=== PATIENT | female | born 1965 | race Caucasian/White ===

== ENCOUNTER 2017-06-24 23:44 | Inpatient (IN) | payer BC ==
[~2017-06-24] VITALS: Ht 165.1 cm; Wt 61.7 kg
[2017-06-24] MEDS ORDERED: VERA80 PO (23:59)
[2017-06-24] MEDS ORDERED: DULO60CA44 PO (23:59)
[2017-06-24] MEDS ORDERED: VALA500T38 PO (23:59)
[2017-06-24] MEDS ORDERED: TRAZ-144 PO (23:59)
[2017-06-24] MEDS ORDERED: ALPR0.5T8 PO (23:59)
[2017-06-25 00:03] LABS: BASOPHILS # (AUTO) 0.04 K/uL (0.00-0.20); BASOPHILS % (AUTO) 0.4 % (0.0-2.0); EOSINOPHILS % (AUTO) 2.15 % (1.0-6.0); HEMATOCRIT 41.4 % (36-46); HEMOGLOBIN 13.8 g/dL (12.0-16.0); LYMPHOCYTES # (AUTO) 2.9 K/uL (1.0-4.8); LYMPHOCYTES % (AUTO) 30.8 % (22.0-44.0); MEAN CORPUSCULAR HEMOGLOBIN 31.9 pg (26.0-34.0); MEAN CORPUSCULAR HGB CONC 33.3 G/dL (31.0-37.0); MEAN CORPUSCULAR VOLUME 96 fL (80-100); MONOCYTES # (AUTO) 0.8 K/uL (0.1-1.0); MONOCYTES % (AUTO) 8.2 % (2.0-9.0); NEUTROPHILS # (AUTO) 5.4 K/uL (1.8-7.7); NEUTROPHILS % (AUTO) 58.5 % (40.0-70.0); PLATELET COUNT (AUTO) 190 K/uL (150-450); RED BLOOD CELL COUNT(AUTO) 4.32 MIL/uL (4.00-5.20); RED CELL DISTRIBUTION WIDTH 13.7 % (11.5-14.5); WHITE BLOOD COUNT (AUTO) 9.2 K/uL (4.5-11.0)
[2017-06-25 00:16] LABS: ANION GAP 9 mmol/L (8-16); CALCIUM, TOTAL 8.8 mg/dL (8.8-10.5); CARBON DIOXIDE 25 mmol/L (22-29); CHLORIDE 105 mmol/L (98-107); CREATININE 0.71 mg/dL (0.60-1.30); GLOMERULAR FILTR. RATE CALC > 60 mL/min (>60); POTASSIUM 3.8 mmol/L (3.5-5.1); SODIUM SERUM 139 mmol/L (136-145); UREA NITROGEN, BLOOD 14 mg/dL (7-18)
[2017-06-25 00:22] LABS: ALANINE AMINOTRANSFERASE 21 U/L (12-78); ALBUMIN 3.6 g/dL (3.4-5.0); ASPARTATE AMINOTRANSFERASE 13 U/L (15-37); BILIRUBIN,TOTAL 0.3 mg/dL (0.1-1.0); TOTAL PROTEIN, SERUM 6.7 g/dL (6.4-8.2)
[2017-06-25] MEDS ORDERED: QUEtiapine FUMARATE 100 MG TABLET PO PRN (01:15)
[2017-06-25] MEDS ORDERED: ZOLPIDEM TARTRATE 10 MG TABLET PO PRN (01:15)
[2017-06-25] MEDS ORDERED: LORazepam 2 MG TABLET PO PRN (01:15)
[2017-06-25] MEDS ORDERED: TraZODone HCL 50 MG TABLET PO ONE (03:45)
[2017-06-25] MEDS ORDERED: ALPRAZolam 0.25 MG TABLET PO ONE (03:45)
[2017-06-25 04:15] VITALS: BP 149/99
[2017-06-25 04:22] LABS: ADD UA MICROSCOPIC YES; APPEARANCE,URINE CLEAR (CLEAR); GLUCOSE, URINE (UA) NEGATIVE (NEGATIVE); KETONES,URINE NEGATIVE (NEGATIVE); LEUKOCYTE ESTERASE ,URINE MODERATE (NEGATIVE); OCCULT BLOOD,URINE NEGATIVE (NEGATIVE); PROTEIN,URINE NEGATIVE (NEGATIVE)
[2017-06-25 04:36] LABS: RBC,URINE 0-2 /HPF (0-2); SQUAMOUS EPITHELIAL CELL,UR Few /LPF (None Seen)
[2017-06-25] MEDS ORDERED: MAGNESIUM HYDROXIDE SUSPENSION 30 ML UDCUP PO PRN (08:00)
[2017-06-25] MEDS ORDERED: PROMETHAZINE HCL 25 MG TABLET PO PRN (08:00)
[2017-06-25] MEDS ORDERED: TUBERCULIN, PURIFIED PROTEIN DERIVATIVE 5 TU/0.1 ML SYG ID ONE (08:00)
[2017-06-25] MEDS ORDERED: MAG HYDROX/AL HYDROX/SIMETH ES 30 ML SUSPENSION UDCUP PO PRN (08:00)
[2017-06-25] MEDS ORDERED: HydrOXYzine PAMOATE 50 MG CAPSULE PO PRN (08:00)
[2017-06-25] MEDS ORDERED: GuaiFENesin/D-METHORPHAN [SUGAR-FREE] 200-20MG/10 ML SYRUP UDCUP PO PRN (08:00)
[2017-06-25] MEDS ORDERED: ACETAMINOPHEN 325 MG TABLET PO PRN (08:00)
[2017-06-25] MEDS ORDERED: LOPERAMIDE HCL 2 MG CAPSULE PO PRN (08:00)
[2017-06-25] MEDS ORDERED: CloNIDine HCL 0.1 MG TABLET PO PRN (08:15)
[2017-06-25] MEDS ORDERED: BENZOCAINE/MENTHOL LOZENGE MM PRN (08:15)
[2017-06-25] MEDS ORDERED: BACITRACIN 28.4 GM OINTMENT TP PRN (08:15)
[2017-06-25] MEDS ORDERED: ALBUTEROL SULFATE HFA 90 MCG/PUFF 8 GM INHALER IH PRN (08:15)
[2017-06-25] MEDS ORDERED: PETROLATUM,WHITE 71 GM JELLY TP PRN (08:15)
[2017-06-25] MEDS ORDERED: ONDANSETRON HCL 4 MG TABLET PO PRN (08:15)
[2017-06-25 08:44] VITALS: BP 102/67
[2017-06-25] MEDS: FOLIC ACID 1 MG TABLET PO SCH (09:22)
[2017-06-25] MEDS: NITROFURANTOIN/NITROFURAN MAC 100 MG CAPSULE [MACROBID] PO SCH ×2 (09:22→16:04)
[2017-06-25] MEDS: DULoxetine HCL 60 MG CAPSULE PO SCH (09:22)
[2017-06-25] MEDS: VERAPAMIL HCL 80 MG TABLET PO SCH (09:22)
[2017-06-25] MEDS: THIAMINE HCL 100 MG TABLET PO SCH ×2 (09:23→16:04)
[2017-06-25] MEDS: MULTIVITAMINS WITH MINERALS, THERAPEUTIC TABLET PO SCH (09:25)
[2017-06-25] MEDS ORDERED: ELETRIPTAN HYDROBROMIDE 40 MG TABLET PO PRN ×2 (14:15→14:30)
[2017-06-25] MEDS ORDERED: TraMADol HCL 50 MG TABLET PO PRN (14:15)
[2017-06-25] MEDS ORDERED: VERA240SR PO (14:21)
[2017-06-25 16:16] VITALS: BP 113/79
[2017-06-25] MEDS: PRAZOSIN HCL 1 MG CAPSULE PO SCH (20:22)
[2017-06-25] MEDS: TraZODone HCL 100 MG TABLET PO SCH (20:22)
[2017-06-25] MEDS ORDERED: SUMAtriptan SUCCINATE 25 MG TABLET PO ONE (21:15)
[2017-06-25] MEDS: ALPRAZolam 1 MG TABLET PO PRN (21:55)
[2017-06-25 21:59] VITALS: BP 101/64
[2017-06-26] MEDS ORDERED: TraMADol HCL 50 MG TABLET PO PRN ×2 (02:15→14:15)
[2017-06-26 07:07] LABS: CHOL/HDL RATIO 2.4 (3.9-5.7)
[2017-06-26 08:20] VITALS: BP 103/70
[2017-06-26] MEDS: FOLIC ACID 1 MG TABLET PO SCH (08:45)
[2017-06-26] MEDS: MULTIVITAMINS WITH MINERALS, THERAPEUTIC TABLET PO SCH (08:45)
[2017-06-26] MEDS: NITROFURANTOIN/NITROFURAN MAC 100 MG CAPSULE [MACROBID] PO SCH ×2 (08:45→16:20)
[2017-06-26] MEDS: THIAMINE HCL 100 MG TABLET PO SCH ×2 (08:45→16:20)
[2017-06-26] MEDS: VERAPAMIL HCL 80 MG TABLET PO SCH (08:45)
[2017-06-26] MEDS: DULoxetine HCL 60 MG CAPSULE PO SCH (08:46)
[2017-06-26 11:58] VITALS: BP 115/73
[2017-06-26] MEDS: ALPRAZolam 1 MG TABLET PO PRN ×3 (11:58→21:37)
[2017-06-26] MEDS ORDERED: TraMADol HCL 50 MG TABLET PO ONE (12:45)
[2017-06-26] MEDS ORDERED: ELETRIPTAN HYDROBROMIDE 40 MG TABLET PO ONE (12:45)
[2017-06-26] MEDS ORDERED: TRAZ-147 PO (12:54)
[2017-06-26] MEDS ORDERED: DULO20CA30 PO (12:54)
[2017-06-26] MEDS ORDERED: PRAZ1 PO (12:54)
[2017-06-26 16:25] VITALS: BP 100/66
[2017-06-26 17:25] VITALS: BP 102/78
[2017-06-26] MEDS ORDERED: ELETRIPTAN HYDROBROMIDE 40 MG TABLET PO PRN (17:45)
[2017-06-26] MEDS: TraZODone HCL 100 MG TABLET PO SCH (21:02)
[2017-06-26] MEDS: PRAZOSIN HCL 1 MG CAPSULE PO SCH (21:35)
[2017-06-27] MEDS ORDERED: PRAZ1 PO (08:08)
[2017-06-27] MEDS ORDERED: MACR100 PO (08:09)
[2017-06-27 08:46] VITALS: BP 95/66
[2017-06-27] MEDS ORDERED: DULoxetine HCL 20 MG CAPSULE PO SCH (09:00)
[2017-06-27] MEDS: FOLIC ACID 1 MG TABLET PO SCH (09:10)
[2017-06-27] MEDS: MULTIVITAMINS WITH MINERALS, THERAPEUTIC TABLET PO SCH (09:10)
[2017-06-27] MEDS: THIAMINE HCL 100 MG TABLET PO SCH (09:10)
[2017-06-27] MEDS: NITROFURANTOIN/NITROFURAN MAC 100 MG CAPSULE [MACROBID] PO SCH (09:10)
[2017-06-27] MEDS: VERAPAMIL HCL 80 MG TABLET PO SCH (09:11)
== END 2017-06-27 11:42 | disposition home or self-care (01) | DRG 885 ==
LOC: EMS 23:45 → 3EX 06-25 03:41 → 3EI 06-25 03:41 → UNDOADMIN 06-25 03:41
PROVIDERS: ADMIT Psychiatry & Neurology Psychiatry; ATTEND Psychiatry & Neurology Psychiatry
DX: F33.2 Major depressive disorder, recurrent severe without psychotic features (principal); R45.851 Suicidal ideations; Z91.19 Patient's noncompliance with other medical treatment and regimen; N39.0 Urinary tract infection, site not specified; M54.5 Low back pain; J45.909 Unspecified asthma, uncomplicated; F43.10 Post-traumatic stress disorder, unspecified; F41.9 Anxiety disorder, unspecified; F10.129 Alcohol abuse with intoxication, unspecified; G43.909 Migraine, unspecified, not intractable, without status migrainosus; G47.00 Insomnia, unspecified; I10 Essential (primary) hypertension; Z63.9 Problem related to primary support group, unspecified; Z65.3 Problems related to other legal circumstances; Z71.41 Alcohol abuse counseling and surveillance of alcoholic; Z90.710 Acquired absence of both cervix and uterus; Z56.0 Unemployment, unspecified; Z88.8 Allergy status to other drugs, medicaments and biological substances
CPT/HCPCS: 87086; 99285; G0480

== ENCOUNTER 2022-09-18 13:05 | Inpatient (IN) | payer BC, MEDICAID ==
[~2022-09-18] VITALS: Ht 165.1 cm; Wt 71.4 kg
[~2022-09-18 13:05] MED LIST: DULO-113 PO; DULO20CA71 PO; NITR-75 PO; PRAZ1 PO; TRAZ-252 PO; TRAZ-257 PO; VERA240T96 PO
[2022-09-18 14:59] LABS: BASOPHILS % (AUTO) 0.6 % (0.0-2.0); COVID AG,FIA SOURCE NASOPHARYNGEAL; EOSINOPHILS % (AUTO) 4.8 % (1.0-6.0); HEMATOCRIT 44.5 % (36-46); HEMOGLOBIN 14.2 g/dL (12.0-16.0); LYMPHOCYTES # (AUTO) 1.6 K/uL (1.0-4.8); LYMPHOCYTES % (AUTO) 29.7 % (22.0-44.0); MEAN CORPUSCULAR HEMOGLOBIN 31.4 pg (26.0-34.0); MEAN CORPUSCULAR HGB CONC 31.8 G/dL (31.0-37.0); MEAN CORPUSCULAR VOLUME 99 fL (80-100); MONOCYTES # (AUTO) 0.6 K/uL (0.1-1.0); MONOCYTES % (AUTO) 11.7 % (2.0-9.0); NEUTROPHILS # (AUTO) 2.9 K/uL (1.8-7.7); NEUTROPHILS % (AUTO) 53.2 % (40.0-70.0); PLATELET COUNT (AUTO) 164 K/uL (150-450); RED BLOOD CELL COUNT(AUTO) 4.51 MIL/uL (4.00-5.20); RED CELL DISTRIBUTION WIDTH 13.8 % (11.5-14.5)
[2022-09-18 15:22] LABS: ANION GAP 5 mmol/L (8-16); CALCIUM, TOTAL 8.6 mg/dL (8.8-10.5); CARBON DIOXIDE 33 mmol/L (22-29); CHLORIDE 106 mmol/L (98-107); CREATININE 0.72 mg/dL (0.60-1.30); GLOMERULAR FILTR. RATE CALC > 60 mL/min (>60); GLUCOSE,RANDOM 96 mg/dL (70-110); POTASSIUM 4.4 mmol/L (3.5-5.1); SODIUM SERUM 144 mmol/L (136-145); UREA NITROGEN, BLOOD 15 mg/dL (7-18)
[2022-09-18 15:29] LABS: ALANINE AMINOTRANSFERASE 18 U/L (12-78); ALBUMIN 3.5 g/dL (3.4-5.0); ALKALINE PHOSPHATASE 51 U/L (46-116); ASPARTATE AMINOTRANSFERASE 18 U/L (15-37); BILIRUBIN,TOTAL 0.4 mg/dL (0.1-1.0); TOTAL PROTEIN, SERUM 6.4 g/dL (6.4-8.2)
[2022-09-18 15:31] LABS: SALICYLATE < 2.8 mg/dL (2.8-20.0)
[2022-09-18 15:45] LABS: ACETAMINOPHEN < 2 mcg/mL (10-30)
[2022-09-18] MEDS ORDERED: HALOPERIDOL 5 MG TABLET PO PRN (15:45)
[2022-09-18] MEDS ORDERED: VERA240C3 PO (15:57)
[2022-09-18] MEDS ORDERED: ELET40TA10 PO (15:57)
[2022-09-18] MEDS ORDERED: TRAZ-257 PO (15:57)
[2022-09-18] MEDS ORDERED: DIVA-112 PO (15:57)
[2022-09-18] MEDS ORDERED: [UNRECOGNIZED DRUG - CODE] SQ (15:57)
[2022-09-18] MEDS ORDERED: VALA500T34 PO (15:57)
[2022-09-18 17:44] VITALS: BP 109/73
[2022-09-18] MEDS ORDERED: PNEUMOCOCCAL VACCINE POLYVALENT 0.5 ML VIAL [PPSV23] IM. ONE (18:15)
[2022-09-18] MEDS ORDERED: INFLUENZA VIRUS VACCINE QVS 2022-23 (6MO+)/PF 60 MCG/0.5 ML SYRINGE IM. ONE (18:15)
[2022-09-18 20:25] VITALS: BP 93/60
[2022-09-18] MEDS: LORazepam 2 MG TABLET PO PRN (23:52)
[2022-09-19 08:00] VITALS: BP 97/59
[2022-09-19] MEDS: DULoxetine HCL 60 MG CAPSULE PO SCH ×2 (12:17→17:30)
[2022-09-19] MEDS: DIVALPROEX SODIUM 500 MG DR TABLET PO SCH ×2 (12:18→17:30)
[2022-09-19] MEDS ORDERED: LOPERAMIDE HCL 2 MG CAPSULE PO PRN (14:00)
[2022-09-19] MEDS ORDERED: NICOTINE 14 MG/24 HOUR PATCH TD PRN (14:00)
[2022-09-19] MEDS ORDERED: PETROLATUM,WHITE 28 GM JELLY TP PRN (14:00)
[2022-09-19] MEDS ORDERED: ALBUTEROL SULFATE HFA 90 MCG/PUFF 8 GM INHALER IH PRN (14:00)
[2022-09-19] MEDS ORDERED: ONDANSETRON HCL 4 MG TABLET PO PRN (14:00)
[2022-09-19] MEDS ORDERED: CloNIDine HCL 0.1 MG TABLET PO PRN (14:00)
[2022-09-19] MEDS ORDERED: DOCUSATE SODIUM 100 MG CAPSULE PO PRN (14:00)
[2022-09-19] MEDS ORDERED: MAG HYDROX/AL HYDROX/SIMETH ES 30 ML SUSPENSION UDCUP PO PRN (14:00)
[2022-09-19] MEDS ORDERED: MAGNESIUM HYDROXIDE SUSPENSION 30 ML UDCUP PO PRN (14:00)
[2022-09-19] MEDS ORDERED: GuaiFENesin/D-METHORPHAN [SUGAR-FREE] 200-20MG/10 ML SYRUP UDCUP PO PRN (14:00)
[2022-09-19 17:50] VITALS: BP 100/64
[2022-09-19 18:48] VITALS: BP_SYST 100; BP_SYST 111; BP_DIAS 64; BP_DIAS 72
[2022-09-19] MEDS: ELETRIPTAN HYDROBROMIDE 40 MG TABLET PO PRN (18:48)
[2022-09-19] MEDS: PRAZOSIN HCL 1 MG CAPSULE PO SCH (21:09)
[2022-09-19] MEDS: TraZODone HCL 100 MG TABLET PO PRN (21:10)
[2022-09-19 21:15] LABS: APPEARANCE,URINE CLEAR (CLEAR); BILIRUBIN,URINE NEGATIVE (NEGATIVE); GLUCOSE, URINE (UA) NEGATIVE (NEGATIVE); KETONES,URINE NEGATIVE (NEGATIVE); LEUKOCYTE ESTERASE ,URINE TRACE (NEGATIVE); NITRATE,URINE NEGATIVE (NEGATIVE); OCCULT BLOOD,URINE NEGATIVE (NEGATIVE); PROTEIN,URINE NEGATIVE (NEGATIVE); SPECIFIC GRAVITIY, URINE 1.015 (1.003-1.030); UROBILINOGEN,URINE <=1.0 mg/dL (<=1.0)
[2022-09-19 21:22] LABS: AMPHET/METH SCREEN,URINE NEGATIVE (NEGATIVE); BARBITURATE SCREEN, URINE NEGATIVE (NEGATIVE); BENZODIAZEPINES SCREEN,URINE POSITIVE (NEGATIVE); CANNABINOID SCREEN,URINE NEGATIVE (NEGATIVE); COCAINE SCREEN,URINE NEGATIVE (NEGATIVE); METHADONE SCREEN, URINE NEGATIVE (NEGATIVE); OPIATE SCREEN,URINE NEGATIVE (NEGATIVE); PHENCYCLIDINE SCREEN,URINE NEGATIVE (NEGATIVE)
[2022-09-19 21:27] LABS: BACTERIA,URINE Rare /HPF (None Seen); RBC,URINE 0-2 /HPF (0-2); SQUAMOUS EPITHELIAL CELL,UR Few /LPF (None Seen)
[2022-09-20] MEDS: ZOLPIDEM TARTRATE 10 MG TABLET PO PRN ×2 (01:36→21:13)
[2022-09-20 08:26] LABS: BASOPHILS % (AUTO) 1.2 % (0.0-2.0); HEMATOCRIT 42.9 % (36-46); HEMOGLOBIN 14.3 g/dL (12.0-16.0); LYMPHOCYTES # (AUTO) 2.1 K/uL (1.0-4.8); LYMPHOCYTES % (AUTO) 33.8 % (22.0-44.0); MEAN CORPUSCULAR HEMOGLOBIN 32.7 pg (26.0-34.0); MEAN CORPUSCULAR HGB CONC 33.3 G/dL (31.0-37.0); MEAN CORPUSCULAR VOLUME 98 fL (80-100); MONOCYTES # (AUTO) 0.6 K/uL (0.1-1.0); MONOCYTES % (AUTO) 9.8 % (2.0-9.0); NEUTROPHILS # (AUTO) 3.1 K/uL (1.8-7.7); NEUTROPHILS % (AUTO) 50.2 % (40.0-70.0); PLATELET COUNT (AUTO) 155 K/uL (150-450); RED BLOOD CELL COUNT(AUTO) 4.37 MIL/uL (4.00-5.20); RED CELL DISTRIBUTION WIDTH 13.6 % (11.5-14.5)
[2022-09-20] MEDS: DIVALPROEX SODIUM 500 MG DR TABLET PO SCH ×2 (08:36→16:11)
[2022-09-20] MEDS: DULoxetine HCL 60 MG CAPSULE PO SCH ×2 (08:36→16:11)
[2022-09-20] MEDS: MULTIVITAMINS WITH MINERALS, THERAPEUTIC TABLET PO SCH (08:36)
[2022-09-20 08:49] VITALS: BP 106/68
[2022-09-20] MEDS: ACETAMINOPHEN 325 MG TABLET PO PRN (08:49)
[2022-09-20 16:07] VITALS: BP 109/74
[2022-09-20 20:36] VITALS: BP 118/79
[2022-09-20] MEDS: PRAZOSIN HCL 1 MG CAPSULE PO SCH (21:13)
[2022-09-20] MEDS: LORazepam 2 MG TABLET PO PRN (23:55)
[2022-09-20] MEDS: TraZODone HCL 100 MG TABLET PO PRN (23:55)
[2022-09-21] MEDS: ACETAMINOPHEN 325 MG TABLET PO PRN (03:08)
[2022-09-21 03:14] VITALS: BP 115/78
[2022-09-21 08:01] VITALS: BP 103/67
[2022-09-21] MEDS: ELETRIPTAN HYDROBROMIDE 40 MG TABLET PO PRN (08:01)
[2022-09-21 08:12] VITALS: BP 103/67
[2022-09-21] MEDS: MULTIVITAMINS WITH MINERALS, THERAPEUTIC TABLET PO SCH (08:42)
[2022-09-21] MEDS: DIVALPROEX SODIUM 500 MG DR TABLET PO SCH (08:42)
[2022-09-21] MEDS: DULoxetine HCL 60 MG CAPSULE PO SCH (08:43)
[2022-09-21 09:01] VITALS: BP 112/68
[2022-09-21] MEDS ORDERED: DULO-113 PO (11:00)
[2022-09-21] MEDS ORDERED: PRAZ1 PO (11:00)
[2022-09-21] MEDS ORDERED: DIVA-112 PO (11:00)
== END 2022-09-21 14:06 | disposition home or self-care (01) | DRG 885 ==
LOC: EMS 13:15 → 3EC 16:36
PROVIDERS: ADMIT Psychiatry & Neurology Child & Adolescent Psychiatry; ATTEND Psychiatry & Neurology Child & Adolescent Psychiatry
DX: F25.1 Schizoaffective disorder, depressive type (principal); F33.2 Major depressive disorder, recurrent severe without psychotic features; F43.10 Post-traumatic stress disorder, unspecified; G43.909 Migraine, unspecified, not intractable, without status migrainosus; F10.10 Alcohol abuse, uncomplicated; G89.29 Other chronic pain; T50.902A Poisoning by unspecified drugs, medicaments and biological substances, intentional self-harm, initial encounter; Z20.822 Contact with and (suspected) exposure to COVID-19; I10 Essential (primary) hypertension; M54.9 Dorsalgia, unspecified; J45.909 Unspecified asthma, uncomplicated; Z79.899 Other long term (current) drug therapy; Z90.710 Acquired absence of both cervix and uterus; Y92.89 Other specified places as the place of occurrence of the external cause; Z88.8 Allergy status to other drugs, medicaments and biological substances
CPT/HCPCS: 80053; 80307; 81001; 84443; 85025; 93005; 99291; G0480; G0481

== ENCOUNTER 2023-10-22 04:21 | Inpatient (IN) | payer BC ==
[~2023-10-22] VITALS: Ht 165.1 cm; Wt 81.0 kg
[~2023-10-22 04:21] MED LIST changes: +DIVA-112 PO; -DULO20CA71 PO; +ELET40TA10 PO; -NITR-75 PO; -TRAZ-252 PO; -TRAZ-257 PO; -VERA240T96 PO; +[UNRECOGNIZED DRUG - CODE] SQ
[2023-10-22 05:03] LABS: BASOPHILS % (AUTO) 0.8 % (0.0-2.0); HEMATOCRIT 40.2 % (36-46); HEMOGLOBIN 13.7 g/dL (12.0-16.0); LYMPHOCYTES # (AUTO) 3.3 K/uL (1.0-4.8); LYMPHOCYTES % (AUTO) 40.3 % (22.0-44.0); MEAN CORPUSCULAR HEMOGLOBIN 32.1 pg (26.0-34.0); MEAN CORPUSCULAR HGB CONC 34.1 G/dL (31.0-37.0); MEAN CORPUSCULAR VOLUME 94 fL (80-100); MONOCYTES # (AUTO) 0.8 K/uL (0.1-1.0); MONOCYTES % (AUTO) 10.3 % (2.0-9.0); NEUTROPHILS # (AUTO) 3.6 K/uL (1.8-7.7); NEUTROPHILS % (AUTO) 44.6 % (40.0-70.0); PLATELET COUNT (AUTO) 296 K/uL (150-450); RED BLOOD CELL COUNT(AUTO) 4.27 MIL/uL (4.00-5.20); RED CELL DISTRIBUTION WIDTH 13.9 % (11.5-14.5); WHITE BLOOD COUNT (AUTO) 8.1 K/uL (4.5-11.0)
[2023-10-22] MEDS: HYDROCODONE/ACETAMINOPHEN 5-325 MG TABLET PO ONE (05:11)
[2023-10-22 05:12] LABS: ANION GAP 13 mmol/L (8-16); CALCIUM, TOTAL 8.2 mg/dL (8.8-10.5); CARBON DIOXIDE 23 mmol/L (22-29); CHLORIDE 104 mmol/L (98-107); CREATININE 0.61 mg/dL (0.60-1.30); GLOMERULAR FILTR. RATE CALC > 60 mL/min (>60); GLUCOSE,RANDOM 108 mg/dL (70-110); POTASSIUM 4.4 mmol/L (3.5-5.1); SODIUM SERUM 140 mmol/L (136-145); UREA NITROGEN, BLOOD 7 mg/dL (7-18)
[2023-10-22 05:17] LABS: ALANINE AMINOTRANSFERASE 24 U/L (12-78); ALBUMIN 3.3 g/dL (3.4-5.0); ALCOHOL, BLOOD (SERUM) 223 mg/dL (0-10); ALKALINE PHOSPHATASE 86 U/L (46-116); ASPARTATE AMINOTRANSFERASE 19 U/L (15-37); BILIRUBIN,TOTAL 0.3 mg/dL (0.1-1.0); TOTAL PROTEIN, SERUM 6.8 g/dL (6.4-8.2)
[2023-10-22 06:12] LABS: COVID AG,FIA SOURCE NASAL SWAB
[2023-10-22 06:28] LABS: SARS-COV2 (COVID) ANTIGEN,FIA Negative (Negative)
[2023-10-22] MEDS ORDERED: LIDOCAINE 1% 10 ML VIAL ONE (06:35)
[2023-10-22] MEDS ORDERED: HALOPERIDOL 5 MG TABLET PO PRN (07:15)
[2023-10-22] MEDS: LIDOCAINE 1% 10 ML VIAL ID ONE (07:17)
[2023-10-22] MEDS: LIDOCAINE 1% 10 ML VIAL SQ ONE (07:20)
[2023-10-22] MEDS: BACITRACIN 0.9 GM PACKET OINTMENT TP ONE (07:20)
[2023-10-22] MEDS: PERTUSS(ACELL),DIPH,TET/PF 0.5 ML SYRINGE [ADULT] IM. ONE (09:35)
[2023-10-22] MEDS: LORazepam 2 MG TABLET PO PRN (10:56)
[2023-10-22] MEDS: ACETAMINOPHEN 500 MG TABLET PO ONE (10:56)
[2023-10-22] MEDS ORDERED: IBUPROFEN 600 MG TABLET PO ONE (11:00)
[2023-10-22] MEDS ORDERED: ELETRIPTAN HYDROBROMIDE 40 MG TABLET PO ONE (11:45)
[2023-10-22 12:08] VITALS: BP 119/78; PULSE 101; RESP 18; TEMP 97.1; O2SAT 96
[2023-10-22] MEDS: SUMAtriptan SUCCINATE 25 MG TABLET PO PRN (15:16)
[2023-10-22 18:03] VITALS: BP 128/81; PULSE 71; RESP 17; TEMP 98
[2023-10-22] MEDS: DULoxetine HCL 60 MG CAPSULE PO SCH (18:03)
[2023-10-22] MEDS: TraMADol HCL 50 MG TABLET PO PRN (18:03)
[2023-10-22 19:03] VITALS: BP 128/71; PULSE 68; RESP 18; TEMP 98
[2023-10-22 20:00] VITALS: BP 125/80; PULSE 70; RESP 18; TEMP 98
[2023-10-22 21:42] VITALS: BP 120/85; PULSE 96; RESP 18; TEMP 97.4; O2SAT 100
[2023-10-22] MEDS: ZOLPIDEM TARTRATE 10 MG TABLET PO PRN (21:49)
[2023-10-23] VITALS (7 sets, daily range): BP systolic 116–128; BP diastolic 77–81; PULSE 91–99; RESP 16–19; TEMP 97.5–97.9; O2SAT 96–98
[2023-10-23] MEDS: DULoxetine HCL 60 MG CAPSULE PO SCH (10:30)
[2023-10-23] MEDS ORDERED: MAGNESIUM HYDROXIDE SUSPENSION 30 ML UDCUP PO PRN (12:45)
[2023-10-23] MEDS ORDERED: LOPERAMIDE HCL 2 MG CAPSULE PO PRN (12:45)
[2023-10-23] MEDS ORDERED: DOCUSATE SODIUM 100 MG CAPSULE PO PRN (12:45)
[2023-10-23] MEDS ORDERED: ONDANSETRON HCL 4 MG TABLET PO PRN (12:45)
[2023-10-23] MEDS ORDERED: NICOTINE 14 MG/24 HOUR PATCH TD PRN (12:45)
[2023-10-23] MEDS ORDERED: ACETAMINOPHEN 325 MG TABLET PO PRN (12:45)
[2023-10-23] MEDS ORDERED: PETROLATUM,WHITE 28 GM JELLY TP PRN (12:45)
[2023-10-23] MEDS ORDERED: ALBUTEROL SULFATE HFA 90 MCG/PUFF 8 GM INHALER IH PRN (12:45)
[2023-10-23] MEDS ORDERED: CloNIDine HCL 0.1 MG TABLET PO PRN (12:45)
[2023-10-23] MEDS ORDERED: GuaiFENesin/D-METHORPHAN [SUGAR-FREE] 200-20MG/10 ML SYRUP UDCUP PO PRN (12:45)
[2023-10-23] MEDS ORDERED: MAG HYDROX/ALUMINUM HYD/SIMETH ES 30 ML SUSPENSION UDCUP PO PRN (12:45)
[2023-10-23] MEDS: HYDROCODONE/ACETAMINOPHEN 5-325 MG TABLET PO PRN ×2 (12:58→21:42)
[2023-10-23] MEDS: VERAPAMIL HCL 240 MG ER TABLET PO SCH (13:28)
[2023-10-23] MEDS: ValACYclovir HCL 500 MG TABLET PO SCH (13:28)
[2023-10-23] MEDS ORDERED: TraMADol HCL 50 MG TABLET PO PRN (16:30)
[2023-10-24] VITALS (9 sets, daily range): BP systolic 106–115; BP diastolic 63–79; PULSE 78–90; RESP 16–18; TEMP 97–97.6; O2SAT 96
[2023-10-24 08:51] LABS: APPEARANCE,URINE CLEAR (CLEAR); BILIRUBIN,URINE NEGATIVE (NEGATIVE); COLOR,URINE LIGHT YELLOW (YELLOW); GLUCOSE, URINE (UA) NEGATIVE (NEGATIVE); KETONES,URINE NEGATIVE (NEGATIVE); LEUKOCYTE ESTERASE ,URINE SMALL (NEGATIVE); NITRATE,URINE NEGATIVE (NEGATIVE); OCCULT BLOOD,URINE NEGATIVE (NEGATIVE); PROTEIN,URINE NEGATIVE (NEGATIVE); SPECIFIC GRAVITIY, URINE 1.014 (1.003-1.030); UROBILINOGEN,URINE <=1.0 mg/dL (<=1.0)
[2023-10-24 08:58] LABS: ALCOHOL, URINE DRUG SCREEN NEGATIVE (NEGATIVE); AMPHET/METH SCREEN,URINE NEGATIVE (NEGATIVE); BARBITURATE SCREEN, URINE NEGATIVE (NEGATIVE); BENZODIAZEPINES SCREEN,URINE NEGATIVE (NEGATIVE); CANNABINOID SCREEN,URINE NEGATIVE (NEGATIVE); COCAINE SCREEN,URINE NEGATIVE (NEGATIVE); METHADONE SCREEN, URINE NEGATIVE (NEGATIVE); OPIATE SCREEN,URINE POSITIVE (NEGATIVE); PHENCYCLIDINE SCREEN,URINE NEGATIVE (NEGATIVE)
[2023-10-24 09:03] LABS: BACTERIA,URINE None Seen /HPF (None Seen); RBC,URINE None Seen /HPF (0-2); SQUAMOUS EPITHELIAL CELL,UR Few /LPF (None Seen)
[2023-10-24 09:44] LABS: HEMOGLOBIN A1C 5.5 % (3.8-5.6)
[2023-10-24 09:45] LABS: CHOL/HDL RATIO 2.6 (3.9-5.7); THYROID STIMULATING HORMONE 2.94 uIU/mL (0.36-3.74)
[2023-10-25] VITALS (9 sets, daily range): BP systolic 103–112; BP diastolic 70–74; PULSE 85–98; RESP 16–18; TEMP 96.8–98; O2SAT 96–98
[2023-10-25] MEDS ORDERED: DULO-113 PO (16:43)
[2023-10-26] MEDS ORDERED: THIAMINE 100 MG TABLET PO SCH (09:00)
[2023-10-26] MEDS ORDERED: FOLIC ACID 1 MG TABLET PO SCH (09:00)
== END 2023-10-25 19:08 | disposition home or self-care (01) | DRG 885 ==
LOC: EMS 04:22 → 3EI 10:24
PROVIDERS: ADMIT Psychiatry & Neurology Child & Adolescent Psychiatry; ATTEND Psychiatry & Neurology Child & Adolescent Psychiatry
PROC: 0HQDXZZ Repair Right Lower Arm Skin, External Approach (ICD-10-PCS; principal; 2023-10-22)
PROC: 0HQEXZZ Repair Left Lower Arm Skin, External Approach (ICD-10-PCS; 2023-10-22)
PROC: GZHZZZZ Group Psychotherapy (ICD-10-PCS; 2023-10-25)
DX: F33.2 Major depressive disorder, recurrent severe without psychotic features (principal); R45.851 Suicidal ideations; F43.10 Post-traumatic stress disorder, unspecified; S61.512A Laceration without foreign body of left wrist, initial encounter; S61.511A Laceration without foreign body of right wrist, initial encounter; J45.909 Unspecified asthma, uncomplicated; G43.909 Migraine, unspecified, not intractable, without status migrainosus; G47.00 Insomnia, unspecified; Z20.822 Contact with and (suspected) exposure to COVID-19; F10.129 Alcohol abuse with intoxication, unspecified; E73.9 Lactose intolerance, unspecified; Y33.XXXA Other specified events, undetermined intent, initial encounter; X83.8XXA Intentional self-harm by other specified means, initial encounter; Y93.89 Activity, other specified; Y92.89 Other specified places as the place of occurrence of the external cause; Y99.8 Other external cause status; Z90.710 Acquired absence of both cervix and uterus; Z88.6 Allergy status to analgesic agent; Z79.899 Other long term (current) drug therapy
CPT/HCPCS: 80053; 80061; 80307; 81001; 83036; 84443; 85025; 90715; 99285; G0480; J3490